=== PATIENT | female | born 1950 | race Two or more races ===

== ENCOUNTER 2018-01-20 14:19 | Inpatient (IN) | payer OTHER, MEDICAID ==
[~2018-01-20] VITALS: Ht 154.9 cm; Wt 68.4 kg
[2018-01-20] VITALS (8 sets, daily range): BP systolic 84–110; BP diastolic 34–65
[2018-01-20] MEDS ORDERED: LORazepam 0.5 MG TAB PO ONE (14:30)
[2018-01-20 15:43] LABS: Basophils # (auto) 0 uL; Basophils % (auto) 0.4 % (0.0-2.0); Eosinophils # (auto) 0.2 uL; Eosinophils % (auto) 1.7 % (0.0-7.0); Hematocrit 35.1 % (36.0-46.0); Hemoglobin 11.5 g/dL (12.2-16.2); Lymphocytes # (auto) 1.1 uL; Lymphocytes % (auto) 11.3 % (10.0-50.0); Mean Corpuscular Hemoglobin 28.5 pg (28.0-32.0); Mean Corpuscular Hgb Conc. 32.8 g/dL (32.0-36.0); Mean Corpuscular Volume 86.8 fL (80.0-100.0); Monocytes # (auto) 0.5 uL; Monocytes % (auto) 5.3 % (0.0-12.0); Neutrophils # (auto) 7.8 uL; Neutrophils % (auto) 81.3 % (37.0-80.0); Nucleated Red Blood Cells % 0.1 %; Platelet Count (auto) 224 10^3/uL (140-450); Red Blood Cells 4.04 10^6/uL (4.0-5.20); Red Cell Distribution Width 13.8 % (11.8-14.3); White Blood Cell 9.6 10^3/uL (4.4-10.8)
[2018-01-20 15:52] LABS: Albumin 3.1 g/dL (3.4-5.0); Magnesium 2.5 mg/dL (1.6-2.6); Potassium 3.8 mmol/L (3.5-5.1)
[2018-01-20 15:59] LABS: BUN/Creatinine Ratio 18.8; Bilirubin, Total 0.1 mg/dL (0.2-1.0); Total Protein 7.2 g/dL (6.4-8.2)
[2018-01-20] MEDS ORDERED: ASPirin 81 mg TAB PO ONE (16:15)
[2018-01-20] MEDS ORDERED: NITROGLYCERIN 0.4 MG SL TAB SL ONE (16:15)
[2018-01-20] MEDS ORDERED: SODIUM CHLORIDE 0.9% 1,000 ML IV ONE (16:37)
[2018-01-20] MEDS ORDERED: HEPARIN 1,000 UNITS/ml 1ML VIAL IV ONE (17:00)
[2018-01-20] MEDS ORDERED: HEPARIN SODIUM (PORCINE) 5000 UNITS/ML 1ML VIAL IV ONE ×2 (17:30→20:00)
[2018-01-20] MEDS ORDERED: LORazepam 0.5 MG TAB PO PRN (19:15)
[2018-01-20] MEDS ORDERED: DEXTROSE (50%) 50ML SYRG IV PRN (19:15)
[2018-01-20] MEDS ORDERED: MORPHINE SULFATE 4 MG/ML SYR/VIAL IV PRN (19:15)
[2018-01-20] MEDS ORDERED: ZOLPIDEM TARTRATE 5 MG TAB PO PRN (19:15)
[2018-01-20] MEDS ORDERED: cefTRIAXone 1GM/50ML D5W 50 ML IV ONE (19:15)
[2018-01-20] MEDS ORDERED: NITROGLYCERIN 0.4 MG SL TAB SL PRN ×2 (19:15)
[2018-01-20] MEDS ORDERED: ACETAMINOPHEN 325 MG TAB PO PRN (19:15)
[2018-01-20] MEDS ORDERED: ALUM & MAG HYDROX-SIMETH LIQ(MAALOX) 30 ML PO ONE (19:15)
[2018-01-20 19:29] LABS: INR 0.93 (0.9-1.15); Partial Thromboplastin Time 24.5 sec (23.78-33.04)
[2018-01-20 19:38] LABS: Urine Bacteria FEW /hpf (None Seen); Urine Blood Negative /uL (Negative); Urine Hyaline Cast FEW /lpf (0 - 2); Urine Mucus FEW (None Seen); Urine Specific Gravity 1.027 (1.001-1.035); Urine WBC 2 /hpf (0 - 5)
[2018-01-20] MEDS ORDERED: MORPHINE SULF INJ 2 MG/ML SYRINGE 1ML ONE (19:39)
[2018-01-20] MEDS: NITROGLYCERIN 50MG/250ML 250 ML IV SCH (19:50)
[2018-01-20] MEDS ORDERED: HEPARIN DRIP/D5W 100UNITS/ML 250 ML IV SCH (21:00)
[2018-01-20] MEDS ORDERED: LIDOCAINE 2%HCL (LOCAL ANESTH.) INJ 20ML MDV ONE (21:29)
[2018-01-20] MEDS ORDERED: fentaNYL CITRATE 100 MCG/2 ML VL ONE (21:31)
[2018-01-20] MEDS ORDERED: EPINEPHrine HCL 1 MG/10 ML SYRG ONE (21:31)
[2018-01-20] MEDS ORDERED: MIDAZOLAM HCL 1MG/1ML-2 ML VIAL ONE (21:31)
[2018-01-20] MEDS ORDERED: ANGIOMAX 250 MG VIAL IV ONE (21:31)
[2018-01-20] MEDS ORDERED: DOPamine 1600MCG/ML D5W 0 ML IV ONE (21:32)
[2018-01-20] MEDS ORDERED: ATROPINE SULF 1 MG/10ml SYR ONE (21:32)
[2018-01-20] MEDS ORDERED: IODIXANOL 320MG/ML 100ML BTL IV ONE (21:32)
[2018-01-20] MEDS ORDERED: SODIUM CHL 0.9% 50 ML ONE (21:32)
[2018-01-20] MEDS ORDERED: CARVEDILOL 3.125 MG TAB PO SCH (22:00)
[2018-01-20] MEDS ORDERED: ENOXAPARIN SOD 80 MG/0.8ML SYRINGE SC SCH (22:00)
[2018-01-20] MEDS ORDERED: ENALAPRIL MALEATE 2.5 MG TAB PO SCH (22:00)
[2018-01-20] MEDS: SODIUM CHLOR 0.9% PF (SALINE LOCK) 10ML VIAL/SYR IV SCH (22:00)
[2018-01-20] MEDS ORDERED: TICAGRELOR 90 MG TAB ONE (22:08)
[2018-01-20] MEDS ORDERED: DOPamine 1600MCG/ML D5W 250 ML IV ONE (22:54)
[2018-01-20] MEDS: DOPamine 1600MCG/ML D5W 250 ML IV SCH (22:55)
[2018-01-20] MEDS: MORPHINE SULFATE 4 MG/ML SYR/VIAL IV PRN (23:02)
[2018-01-20] MEDS: ONDANSETRON HCL 4 MG/2 ML VIAL IV PRN (23:03)
[2018-01-20] MEDS ORDERED: EPINEPHrine HCL 0.5 ML NEB NEB ONE (23:15)
[2018-01-20] MEDS: SODIUM CHLORIDE 0.9% 1,000 ML IV SCH (23:15)
[2018-01-20] MEDS: ATORVASTATIN 20 MG TAB PO SCH (23:30)
[2018-01-20] MEDS: InsuLIN REG 1unit/0.01ml Soln (100units/ml) SC SCH (23:45)
[2018-01-20] MEDS: ACCU-CHEK COMFORT CURVE STRIP VI SCH (23:59)
[2018-01-21] VITALS (89 sets, daily range): BP systolic 80–165; BP diastolic 24–107
[2018-01-21] MEDS ORDERED: CLOPIDOGREL 300 MG TAB PO ONE
[2018-01-21 04:00] LABS: Basophils # (auto) 0 uL; Basophils % (auto) 0.1 % (0.0-2.0); Eosinophils # (auto) 0 uL; Eosinophils % (auto) 0.1 % (0.0-7.0); Hemoglobin 10.3 g/dL (12.2-16.2); Lymphocytes # (auto) 1.3 uL; Lymphocytes % (auto) 15.3 % (10.0-50.0); Mean Corpuscular Hemoglobin 28.4 pg (28.0-32.0); Mean Corpuscular Hgb Conc. 33.1 g/dL (32.0-36.0); Mean Corpuscular Volume 85.8 fL (80.0-100.0); Monocytes # (auto) 0.4 uL; Monocytes % (auto) 5.1 % (0.0-12.0); Neutrophils # (auto) 6.7 uL; Neutrophils % (auto) 79.4 % (37.0-80.0); Platelet Count (auto) 217 10^3/uL (140-450); Red Blood Cells 3.62 10^6/uL (4.0-5.20); White Blood Cell 8.4 10^3/uL (4.4-10.8)
[2018-01-21 04:55] LABS: Albumin 2.9 g/dL (3.4-5.0); Calcium 7.7 mg/dL (8.5-10.1); Magnesium 2.3 mg/dL (1.6-2.6); Potassium 3.9 mmol/L (3.5-5.1)
[2018-01-21 05:00] LABS: BUN/Creatinine Ratio 21.6; Bilirubin, Total 0.3 mg/dL (0.2-1.0); Total Protein 6.8 g/dL (6.4-8.2)
[2018-01-21] MEDS: SODIUM CHLOR 0.9% PF (SALINE LOCK) 10ML VIAL/SYR IV SCH ×3 (06:00→21:33)
[2018-01-21] MEDS: ACCU-CHEK COMFORT CURVE STRIP VI SCH ×4 (06:28→21:33)
[2018-01-21] MEDS: InsuLIN REG 1unit/0.01ml Soln (100units/ml) SC SCH ×4 (06:28→21:33)
[2018-01-21] MEDS: SODIUM CHLORIDE 0.9% 1,000 ML IV SCH ×2 (06:41→12:35)
[2018-01-21] MEDS: Glucerna Carbsteady SHAKE Vanilla 8oz PO SCH ×3 (08:00→18:11)
[2018-01-21] MEDS: FAMOTIDINE (10MG/ML) 2ML VL IV SCH ×2 (09:33→21:33)
[2018-01-21] MEDS: cefTRIAXone 1GM/50ML D5W 50 ML IV SCH (09:33)
[2018-01-21] MEDS: DOCUSATE SOD 100 MG CAP PO SCH (09:34)
[2018-01-21] MEDS: CLOPIDOGREL BISULFATE 75 MG TAB PO SCH (09:34)
[2018-01-21] MEDS: ASPirin 81 mg TAB PO SCH (09:34)
[2018-01-21] MEDS: PANTOPRAZOLE 40 MG TAB PO SCH ×2 (09:36→21:33)
[2018-01-21] MEDS: MORPHINE SULFATE 4 MG/ML SYR/VIAL IV PRN (09:41)
[2018-01-21] MEDS: ONDANSETRON HCL 4 MG/2 ML VIAL IV PRN (10:03)
[2018-01-21 10:42] LABS: Hematocrit 32.8 % (36.0-46.0); Hemoglobin 10.8 g/dL (12.2-16.2)
[2018-01-21] MEDS ORDERED: FUROSEMIDE 20 MG/2 ML VIAL IV ONE (11:30)
[2018-01-21] MEDS ORDERED: FUROSEMIDE 20 MG/2 ML VIAL ONE (11:33)
[2018-01-21 15:48] LABS: Hematocrit 33.5 % (36.0-46.0); Hemoglobin 11.2 g/dL (12.2-16.2)
[2018-01-21] MEDS: NITROGLYCERIN 50MG/250ML 250 ML IV SCH (19:50)
[2018-01-21] MEDS: DOPamine 1600MCG/ML D5W 250 ML IV SCH (20:43)
[2018-01-21] MEDS: ATORVASTATIN 20 MG TAB PO SCH (21:33)
[2018-01-21 22:49] LABS: Hematocrit 31.4 % (36.0-46.0); Hemoglobin 10.4 g/dL (12.2-16.2)
[2018-01-22] VITALS (71 sets, daily range): BP systolic 98–155; BP diastolic 40–93
[2018-01-22 03:53] LABS: Basophils # (auto) 0.1 uL; Basophils % (auto) 0.6 % (0.0-2.0); Eosinophils # (auto) 0.3 uL; Eosinophils % (auto) 3.4 % (0.0-7.0); Hematocrit 32.6 % (36.0-46.0); Hemoglobin 10.7 g/dL (12.2-16.2); Lymphocytes # (auto) 1.8 uL; Mean Corpuscular Hemoglobin 28.1 pg (28.0-32.0); Mean Corpuscular Hgb Conc. 32.9 g/dL (32.0-36.0); Mean Corpuscular Volume 85.3 fL (80.0-100.0); Monocytes # (auto) 0.6 uL; Monocytes % (auto) 6.4 % (0.0-12.0); Neutrophils # (auto) 6.7 uL; Neutrophils % (auto) 70.6 % (37.0-80.0); Platelet Count (auto) 221 10^3/uL (140-450); Red Blood Cells 3.82 10^6/uL (4.0-5.20); Red Cell Distribution Width 13.8 % (11.8-14.3); White Blood Cell 9.6 10^3/uL (4.4-10.8)
[2018-01-22 04:12] LABS: BUN/Creatinine Ratio 17.1; Calcium 7.9 mg/dL (8.5-10.1); Potassium 3.7 mmol/L (3.5-5.1)
[2018-01-22 04:15] LABS: Bilirubin, Total 0.3 mg/dL (0.2-1.0); Total Protein 6.9 g/dL (6.4-8.2)
[2018-01-22] MEDS: SODIUM CHLOR 0.9% PF (SALINE LOCK) 10ML VIAL/SYR IV SCH ×2 (06:00→14:00)
[2018-01-22] MEDS ORDERED: ceFAZolin 1GM/50ML 0 ML IV ONE (06:09)
[2018-01-22] MEDS: ACCU-CHEK COMFORT CURVE STRIP VI SCH ×3 (06:24→17:09)
[2018-01-22] MEDS: InsuLIN REG 1unit/0.01ml Soln (100units/ml) SC SCH ×3 (06:24→17:00)
[2018-01-22] MEDS: Glucerna Carbsteady SHAKE Vanilla 8oz PO SCH ×3 (08:00→17:09)
[2018-01-22] MEDS: FAMOTIDINE (10MG/ML) 2ML VL IV SCH (09:11)
[2018-01-22] MEDS: PANTOPRAZOLE 40 MG TAB PO SCH (09:14)
[2018-01-22] MEDS: DOCUSATE SOD 100 MG CAP PO SCH (09:15)
[2018-01-22] MEDS: CLOPIDOGREL BISULFATE 75 MG TAB PO SCH (09:15)
[2018-01-22] MEDS: cefTRIAXone 1GM/50ML D5W 50 ML IV SCH (09:16)
[2018-01-22] MEDS: ASPirin 81 mg TAB PO SCH (09:16)
[2018-01-22] MEDS ORDERED: CLOPIDOGREL BISULFATE 75 MG TAB PO SCH (10:00)
[2018-01-22 13:45] LABS: Hepatitis B Surface Antibody Positive
[2018-01-22 14:18] LABS: Hepatitis A Total Antibody Positive
[2018-01-22 16:48] LABS: Hepatitis C Antibody Negative (Negative)
[2018-01-22 16:49] LABS: Hepatitis B Core Total AB Negative
== END 2018-01-22 21:55 | disposition short-term general hospital (02) | DRG 246 ==
LOC: ER 14:28 → TELE 19:19 → ICU WEST 20:30
PROVIDERS: ADMIT Internal Medicine; ATTEND Internal Medicine
PROC: 027035Z Dilation of Coronary Artery, One Artery with Two Drug-eluting Intraluminal Devices, Percutaneous Approach (ICD-10-PCS; principal; 2018-01-20)
PROC: 4A023N7 Measurement of Cardiac Sampling and Pressure, Left Heart, Percutaneous Approach (ICD-10-PCS; 2018-01-20)
PROC: B2111ZZ Fluoroscopy of Multiple Coronary Arteries using Low Osmolar Contrast (ICD-10-PCS; 2018-01-20)
PROC: B41F1ZZ Fluoroscopy of Right Lower Extremity Arteries using Low Osmolar Contrast (ICD-10-PCS; 2018-01-20)
DX: I21.4 Non-ST elevation (NSTEMI) myocardial infarction (principal); I50.41 Acute combined systolic (congestive) and diastolic (congestive) heart failure; E44.0 Moderate protein-calorie malnutrition; I95.9 Hypotension, unspecified; E83.51 Hypocalcemia; F41.9 Anxiety disorder, unspecified; I12.9 Hypertensive chronic kidney disease with stage 1 through stage 4 chronic kidney disease, or unspecified chronic kidney disease; N18.2 Chronic kidney disease, stage 2 (mild); D63.8 Anemia in other chronic diseases classified elsewhere; E11.22 Type 2 diabetes mellitus with diabetic chronic kidney disease; E78.5 Hyperlipidemia, unspecified; I25.10 Atherosclerotic heart disease of native coronary artery without angina pectoris; Z82.3 Family history of stroke; Z79.82 Long term (current) use of aspirin; Z79.899 Other long term (current) drug therapy; Z68.28 Body mass index [BMI] 28.0-28.9, adult
CPT/HCPCS: 36415; 71046; 74176; 80053; 80061; 81001; 82962; 83036; 83735; 83880; 84484; 85014; 85018; 85025; 85610; 85730; 86704; 86706; 86708; 86803; 87081; 87086; 87340; 93005; 93306; 94761; 96361; 96374; 99152; A6257; C1874; C1887; G0378; J0690; J0696; J1815; J2250; J2405; J3490; Q9967